=== PATIENT | female | born 1955 | race Caucasian/White ===

== ENCOUNTER 2021-05-25 14:43 | Emergency (ER) | payer MEDICARE, SELFPAY ==
[2021-05-25 14:52] VITALS: BP 167/67; PULSE 72; RESP 14; TEMP 36.9; O2SAT 100
--- NOTE | 2021-05-25 14:54 | ED.EAR ---
HPI - Ear Problem General Chief complaint: Ear Stated complaint: Ear Pain Time Seen by Provider: 05/25/21 14:54 Source: patient and RN notes reviewed History of Present Illness HPI Narrative: Patient is 65-year-old female who presents the urgent care with complaints of bilateral ear pain. Patient states that it started last night and was worse on the right which is now worse on the left. Patient states she is been taking Tylenol but otherwise denies of any other upper respiratory complaints. No acute distress noted. Patient aware of the plan of care. Some parts of this dictation were generated by voice recognition software and may contain typographical and/or grammatical inaccuracies. Related Data Home Medications Medication Instructions Recorded Confirmed aspirin [Adult Low Dose Aspirin] 81 mg PO DAILY 05/25/21 05/25/21 atorvastatin 80 mg PO DAILY 05/25/21 05/25/21 ezetimibe [Zetia] 10 mg PO DAILY 05/25/21 05/25/21 famotidine 20 mg PO DAILY 05/25/21 05/25/21 ferrous sulfate 325 mg PO DAILY 05/25/21 05/25/21 [id number] 3,6,9 5 1 cap PO DAILY 05/25/21 05/25/21 [[place] 3-6-9 Fatty Acids] isosorbide mononitrate 60 mg PO DAILY 05/25/21 05/25/21 mirtazapine 45 mg PO DAILY 05/25/21 05/25/21 vitamin B complex [B 1 tablet PO DAILY 05/25/21 05/25/21 Complex-Vitamin B12] Allergies Allergy/AdvReac Type Severity Reaction Status Date / Time No Known Allergies Allergy Verified 05/25/21 14:59 Review of Systems Review of Systems: CONSTITUTIONAL: Denies fever, chills, or sweats. EYES: Denies visual changes, redness, or discharge. ENT: Denies rhinorrhea, congestion, sore throat. Reports bilateral otalgia CARDIOVASCULAR: Denies chest pain, palpitations, or edema. RESPIRATORY: Denies cough or dyspnea. GASTROINTESTINAL: Denies abdominal pain, nausea, vomiting, or diarrhea. GENITOURINARY: Denies dysuria or hematuria. SKIN: Denies rash or itching. MUSCULOSKELETAL: Denies back pain, joint pain, or myalgia. NEUROLOGIC: Denies headache, numbness, or weakness. All other systems reviewed are negative, except as documented in HPI. PMFSH Comments At the time of my signature, I reviewed and agree with the nursing past medical, surgical, social, and family history. There is no relevant family history pertinent to the patient complaint. Exam Narrative: GENERAL: This is a well-nourished, well-developed patient, in no apparent distress. HEAD: normocephalic, atraumatic. EYES: PERRL. Sclera clear/white. Vision is grossly intact. EARS: External ears normal, auditory canals clear and without drainage, mild to moderate fluid noted behind left TM without otitis. TMs normal without perforation. Hearing grossly intact. NOSE: External nose normal with no obvious nasal discharge, nares without redness, no rhinorrhea. THROAT: Mucous membranes moist, posterior pharynx clear. NECK: Neck supple CARDIOVASCULAR: Regular rate and rhythm without murmurs, gallops, or rubs. RESPIRATORY: Clear to auscultation. Breath sounds equal bilaterally. No wheezes, rales, or rhonchi. SKIN: warm, intact with no suspicious lesions or rash, good texture and turgor. NEURO: awake, alert, and oriented to person, place and time. There were no obvious focal neurologic abnormalities. EXTREMITIES: No clubbing, cyanosis, or edema. Course Course Level of Care: Express Care Visit Vital Signs Vital signs: Vital Signs Temperature 98.4 F 05/25/21 14:52 Pulse Rate 72 05/25/21 14:52 Respiratory Rate 14 05/25/21 14:52 Blood Pressure 167/67 H 05/25/21 14:52 Pulse Oximetry 100 05/25/21 14:52 Temperature 98.4 F 05/25/21 14:52 Pulse Rate 72 05/25/21 14:52 Respiratory Rate 14 05/25/21 14:52 Blood Pressure 167/67 H 05/25/21 14:52 Pulse Oximetry 100 05/25/21 14:52 Reviewed-patient is informed that they may have pre-hypertension or hypertension based on a blood pressure reading in the department. I recommend the patient call the primary care pr
== END 2021-05-25 15:28 | disposition home or self-care (01) ==
PROVIDERS: Emergency Provider Nurse Practitioner Family
DX: H92.03 Otalgia, bilateral (principal); E78.00 Pure hypercholesterolemia, unspecified; K21.9 Gastro-esophageal reflux disease without esophagitis; N18.30 Chronic kidney disease, stage 3 unspecified
CPT/HCPCS: 99213; G0463